=== PATIENT | female | born 1960 | race Caucasian/White ===

== ENCOUNTER → 2016-11-04 | Outpatient (CLI) | payer BC ==
[2016-11-04 07:49] LABS: BASOPHILS # (AUTO) 0.03 10*3/UL; BASOPHILS % (AUTO) 0.5 % (0-1); EOSINOPHILS % (AUTO) 7.5 % (0-8); HEMATOCRIT 40.7 % (37.0-47.0); HEMOGLOBIN 13.6 g/dL (12.0-16.0); IMM GRAN % (AUTO) 0.3 % (0-5); IMM GRAN# (AUTO) 0.02 10*3/UL; LYMPHOCYTES # (AUTO) 1.75 10*3/uL; LYMPHOCYTES % (AUTO) 27.4 % (10-50); MEAN CORPUSCULAR HEMOGLOBIN 30.4 PG (27-31); MEAN CORPUSCULAR HGB CONC 33.4 g/dL (33-37); MEAN PLATELET VOLUME 10.6 FL (7.4-12.2); MONOCYTES # (AUTO) 0.49 10*3/UL (0.3-0.8); MONOCYTES % (AUTO) 7.7 % (5-15); NEUTROPHILS # (AUTO) 3.61 10*3/UL; NEUTROPHILS % (AUTO) 56.6 % (50-80); RDW COEFFICIENT OF VARIATION 13.5 % (11.5-14.5); RED BLOOD COUNT 4.48 10^6/uL (4.20-5.40); WHITE BLOOD COUNT 6.38 10^3/uL (4.8-10.8)
[2016-11-04 07:55] LABS: PLATELET MORPHOLOGY COMMENT NORMAL MORPHOLOGY (NORM)
[2016-11-04 08:01] LABS: ASPARTATE AMINO TRANSFERASE 27 IU/L (8-39); BILIRUBIN,TOTAL 1.2 mg/dL (0.3-1.2); BLOOD UREA NITROGEN 15 mg/dL (7-22); BUN/CREATININE RATIO 21.42 (6-20); CALCIUM 9.2 mg/dL (8.7-10.7); CHLORIDE 103 meq/L (98-112); CREATININE 0.7 mg/dL (0.50-1.20); EST GLOMERULAR FILTRATION > 60 (>60 ml/min/1.73m(2)); GLUCOSE 147 mg/dL (78-110); HDL CHOLESTEROL 64 mg/dL (40-150); SODIUM 137 meq/L (135-145); TOTAL PROTEIN 7.1 g/dL (6.1-8.0); TRIGLYCERIDES 260 mg/dL (44-200)
== END ==
LOC: LAB 07:38
PROVIDERS: ATTEND Family Medicine
DX: Z00.00 Encounter for general adult medical examination without abnormal findings (principal)
CPT/HCPCS: 36415; 80053; 80061; 82306; 83036; 84443; 85025

== ENCOUNTER 2018-11-18 18:54 | Inpatient (IN) ==
[2018-11-18] MEDS ORDERED: PANTOPRAZOLE IV 40 MG VIAL IVP ONE (19:52)
[2018-11-18] MEDS ORDERED: ONDANSETRON 4 MG/2 ML VIAL IVP ONE (19:52)
[2018-11-18] MEDS ORDERED: Sodium Chloride 0.9% 1,000 ML PRIMARY IV ONE (19:52)
[2018-11-18] MEDS ORDERED: Acetaminophen 1000mg Inj 1,000 MG/100 ML VIAL IV PRN (19:54)
[2018-11-18 20:31] LABS: BASOPHILS # (AUTO) 0.03 10*3/UL; BASOPHILS % (AUTO) 0.3 % (0-1); EOSINOPHILS % (AUTO) 2.9 % (0-8); Hematocrit [HCT] 46.1 % (37.0-47.0); Hemoglobin [HGB] 15.4 g/dL (12.0-16.0); LYMPHOCYTES # (AUTO) 1.42 10*3/uL; MEAN CORPUSCULAR HEMOGLOBIN 30.3 PG (27-31); MEAN CORPUSCULAR HGB CONC 33.4 g/dL (33-37); MEAN CORPUSCULAR VOLUME 90.6 FL (81-99); MEAN PLATELET VOLUME 11.8 FL (7.4-12.2); MONOCYTES # (AUTO) 0.57 10*3/UL (0.3-0.8); MONOCYTES % (AUTO) 5.6 % (5-15); NEUTROPHILS # (AUTO) 7.86 10*3/UL; NEUTROPHILS % (AUTO) 77.1 % (50-80); RED BLOOD COUNT 5.09 10^6/uL (4.20-5.40)
[2018-11-18 20:35] LABS: BLOOD UREA NITROGEN 12 mg/dL (7-22); BUN/CREATININE RATIO 17.14 (6-20); LIPASE 47 IU/L (23-300); SERUM ALBUMIN 4.7 g/dL (3.5-4.8)
[2018-11-18 20:36] LABS: PLATELET MORPHOLOGY COMMENT NORMAL MORPHOLOGY (NORM); RBC MORPHOLOGY COMMENT NORMAL MORPHOLOGY (NORM); WBC MORPHOLOGY COMMENT NORMAL MORPHOLOGY (NORM)
[2018-11-18 20:37] LABS: BILIRUBIN,URINE NEGATIVE (NEG); CLARITY,URINE Slightly Cloudy (CLEAR); COLOR,URINE YELLOW (Y); GLUCOSE, URINE (UA) NEGATIVE (NEG); OCCULT BLOOD,URINE NEGATIVE (NEG); PH,URINE 7.5 (5.0-8.5); PROTEIN,URINE TRACE mg/dl (NEG); URINE SAMPLE TYPE CLEAN CATCH URINE; UROBILINOGEN,URINE 0.2 EU/dL (0.2)
--- NOTE | 2018-11-18 21:32 | DI ---
EXAM: CT Abdomen and Pelvis With Intravenous Contrast CLINICAL HISTORY: ITS.REASON abdominal pain, left Physician Notes: Tech Comments: TECHNIQUE: Axial computed tomography images of the abdomen and pelvis with intravenous contrast. COMPARISON: No relevant prior studies available. FINDINGS: Lung bases: Unremarkable. No mass. No consolidation. ABDOMEN: Liver: Unremarkable. No mass. Gallbladder and bile ducts: No abnormal ductal dilation or stones. Pancreas: Unremarkable. No mass. No ductal dilation. Spleen: Unremarkable. No splenomegaly. Adrenals: Unremarkable. No mass. Kidneys and ureters: Unremarkable. No solid mass. No hydronephrosis. Stomach and bowel: No obstruction. No mucosal thickening. PELVIS: Appendix: No findings to suggest acute appendicitis. Bladder: Unremarkable. No mass. Reproductive: Unremarkable as visualized. ABDOMEN and PELVIS: Intraperitoneal space: Unremarkable. No free air. No significant fluid collection. Bones/joints: No acute fracture. No dislocation. Soft tissues: Fluid levels throughout the colon. Mild soft tissue swelling around the ascending colon. Moderate soft tissue swelling around the descending and sigmoid colon. Vasculature: No abdominal aortic aneurysm. Lymph nodes: Unremarkable. No enlarged lymph nodes. IMPRESSION: Fluid levels throughout the colon. Mild soft tissue swelling around the ascending colon. Moderate soft tissue swelling around the descending and sigmoid colon. Consistent with moderate colitis.
--- NOTE | 2018-11-18 22:05 | PDOC ---
HPI - History of Present Illness History of Present Illness: This very nice 58-year-old female who has been having abdominal pain since Monday she was seen in the ER dismissed home comes back today for increased right lower quadrant abdominal pain she was found to have normal labs The CT scan consistent with colitis. She does have some rebound tenderness on the right side I did call Dr. karley Lopez presented the patient and the findings a agrees with treatment at present time will see the patient in the morning there is no rigidity of her abdomen. There is no diarrhea no nausea no vomiting Past Medical History Medical History: Diabetes, GERD, hypothyroidism Tobacco Use: Never Smoker In the Past 12 Months, Have Used or Abuse Any of the Following Substance: None Medication / Allergies Home Medications: Home Medications Medication Instructions Recorded Confirmed Type Pioglitazone HCl [Actos] 300 mg PO DAILY 07/31/12 11/13/18 History Levothyroxine Sodium 50 mcg PO DAILY 11/13/18 11/13/18 History Mv-Mn/Iron/Folic Acid/Herb 190 25 mcg PO DAILY 11/13/18 11/13/18 History [Vitamin D3 Complete Caplet] Pantoprazole Sodium [Protonix] 40 mg PO BID 11/13/18 11/13/18 History Sitagliptin Phosphate [Januvia] 100 mg PO DAILY 11/13/18 11/13/18 History Allergies/Adverse Reactions: Allergies Allergy/AdvReac Type Severity Reaction Status Date / Time hydrocodone bitartrate Allergy Intermediate RASH Verified 11/13/18 01:04 [From Vicodin] acetaminophen [From Vicodin] Allergy Unknown NOT Verified 11/13/18 01:04 APPLICABLE Review of Systems - Review of Systems All Systems: Reviewed & No Additional Complaints Except as Stated - Respiratory Respiratory: DENIES: Negative System Review, Cough, Sputum, Dyspnea At Rest, Dyspnea with Exertion, Pleuritic Pain, Hemoptysis, Wheezing, Other, See HPI - Cardiovascular Cardiovascular: DENIES: Negative System Review, Chest Pain, Edema, Syncope, Palpitations, Orthopnea, Paroxysmal Nocturnal Dyspnea, Other, See HPI - Gastrointestinal Gastrointestinal / Abdominal: REPORTS: Abdominal Pain. DENIES: Nausea, Vomiting, Diarrhea Exam - Vitals Vital Signs: Vital Signs Temperature 97.0 F Temperature Source Temporal Artery Scan Pulse Rate [Pulse Oximeter] 75 Respiratory Rate 20 Blood Pressure [Left Arm] 144/81 Pulse Ox 98 Oxygen Delivery Method Room Air Height 5 ft Weight 270 lb - General General Appearance: Cooperative, Mild Distress - Respiratory Respiratory Exam: POSITIVE: Clear to Auscultation - Bilaterally, Breathing Non Labored, Normal To Percussion, Normal to Percussion and Palpation - Cardiovascular Cardiovascular Exam: POSITIVE: RRR, No Murmur, No Clicks, No Gallops, No Rubs, PMI Non-Displaced - GI/Abdominal GI/Abdominal Exam: POSITIVE: Normal Bowel Sounds, Soft, No Masses, Rebound, No Hepatomegaly, No Splenomegaly, No Organomegaly. NEGATIVE: Firm, Distended, Guarding, Rigid, Positive for Ascites - Extremities Extremities Exam: POSITIVE: No Clubbing Present, No Edema Present Results - Labs CBC and BMP: 11/18/18 19:35 11/18/18 19:35 Assessment and Plan - Patient Problems (1) Colitis Current Visit: Yes Status: Acute Comment: IV fluids, hold diabetic medication, start Invanz IV consult to Dr. karley Lopez I talked to him on the phone and he will see the patient in the morning Code(s): K52.9 - Noninfective gastroenteritis and colitis, unspecified (2) Abdominal pain Current Visit: No Status: Acute Comment: Pain control tried fentanyl we will try diluted next patient says that her allergy to codeine is that she get nausea Code(s): R10.9 - Unspecified abdominal pain
[2018-11-18] MEDS ORDERED: LIDOCAINE W/ SODIUM BICARB 0.5 ML SYR SUBD PRN (22:46)
[2018-11-18] MEDS ORDERED: DOCUSATE 100 MG CAPSULE PO PRN (22:46)
[2018-11-18] MEDS ORDERED: CALCIUM CARBONATE 500 MG (TUMS) CHEWABLE TABLET PO PRN (22:46)
[2018-11-18] MEDS ORDERED: fentaNYL Inj 100 MCG/2 ML VIAL IVP PRN (23:02)
[2018-11-18] MEDS: Ertapenem Inj 1 GM in Sodium Chloride 0.9% 100 ML IV SCH (23:09)
[2018-11-18] MEDS: HEPARIN 5000 UNIT/1 ML SUBCUT SCH (23:09)
[2018-11-18] MEDS: Lactated Ringers 1,000 ML PRIMARY IV SCH (23:09)
[2018-11-18] MEDS: ONDANSETRON 4 MG/2 ML VIAL IVP PRN (23:18)
[2018-11-18] MEDS: Insulin Lispro Flexpen 300 UNIT/3 ML INSULN.PEN SUBCUT SCH (23:53)
[2018-11-18] MEDS: HYDROmorphone 2 MG/1 ML IVP PRN (23:55)
[2018-11-19] MEDS: LEVOTHYROXINE 50 MCG TABLET PO SCH (04:34)
[2018-11-19] MEDS: ONDANSETRON 4 MG/2 ML VIAL IVP PRN ×2 (04:35→09:35)
[2018-11-19] MEDS: HYDROmorphone 2 MG/1 ML IVP PRN (04:35)
[2018-11-19 04:44] LABS: BASOPHILS # (AUTO) 0.01 10*3/UL; BASOPHILS % (AUTO) 0.1 % (0-1); EOSINOPHILS # (AUTO) 0.02 10*3/UL; EOSINOPHILS % (AUTO) 0.2 % (0-8); Hematocrit [HCT] 41.8 % (37.0-47.0); LYMPHOCYTES # (AUTO) 1.39 10*3/uL; MEAN CORPUSCULAR HEMOGLOBIN 30.3 PG (27-31); MEAN CORPUSCULAR HGB CONC 33.5 g/dL (33-37); MEAN CORPUSCULAR VOLUME 90.5 FL (81-99); MONOCYTES # (AUTO) 0.32 10*3/UL (0.3-0.8); MONOCYTES % (AUTO) 3.3 % (5-15); NEUTROPHILS # (AUTO) 7.81 10*3/UL; NEUTROPHILS % (AUTO) 81.7 % (50-80); RED BLOOD COUNT 4.62 10^6/uL (4.20-5.40)
[2018-11-19 04:53] LABS: BLOOD UREA NITROGEN 9 mg/dL (7-22); SERUM ALBUMIN 3.7 g/dL (3.5-4.8)
--- NOTE | 2018-11-19 04:57 | PDOC ---
Abdomen/Flank HPI - General Chief Complaint: Nausea / Vomiting / Diarrhea Stated Complaint: abdominal pain, vomiting Date Seen by Provider: 11/18/18 Time Seen by Provider: 19:25 Source: POSITIVE: Patient, Spouse Exam Limitations: POSITIVE: No limitations Nurse's Notes Reviewed & Considered: Yes - History of Present Illness Initial Comments: The patient is a 58-year-old female. Patient complains of left-sided abdominal pain. Patient was seen Monday, 5 days ago in the emergency room with several complaints. She states she's also had vomiting and last vomited one and a half hours [employer] TE[employer]. She states she's had a cholecystectomy and an appendectomy. She had surgery for intussusception of the bowel when she was 6 months old. Motor previous visit CT scan abdomen and pelvis with IV contrast was read as normal and laboratory values were normal. She had one episode of vomiting shortly after arrival to the emergency room. History of diabetes mellitus. She is on home oxygen. No known fevers or chills. No melena, hematochezia, hematemesis, dysuria or hematuria. She states she has a history of constipation. Patient s tates she had a colonoscopy a few months ago, and to the best of her knowledge this was normal Body Location Affected: REPORTS: Abdomen Timing: REPORTS: Intermittent Duration: <1 week (5 days) Severity: Moderate Quality: REPORTS: "Pain" Abdominal Pain Onset Location: REPORTS: LLQ, Periumbilical Abdominal Pain Radiation: REPORTS: No radiation Context: REPORTS: None Modifying Factors: improves with: Movement, Other (Worsened with direct palpation) Associated Symptoms: REPORTS: Nausea, Vomiting Similar Symptoms Previously: Yes (seen in ER with's same complaint 5 days ago) Recent Care Received: REPORTS: Recently Seen, Treated by MD (Seen in ER with same complaint 5 days ago) Any Prior Injuries Related to Current Complaint?: No - Patient Home Medications Home Medications: Home Medications Pioglitazone HCl [Actos] 300 mg PO DAILY 07/31/12 Levothyroxine Sodium 50 mcg PO DAILY 11/13/18 Mv-Mn/Iron/Folic Acid/Herb 190 [Vitamin D3 Complete Caplet] 25 mcg PO DAILY 11/13/18 Pantoprazole Sodium [Protonix] 40 mg PO BID 11/13/18 Sitagliptin Phosphate [Januvia] 100 mg PO DAILY 11/13/18 - Patient Allergies Allergies/Adverse Reactions: Allergies Allergy/AdvReac Type Severity Reaction Status Date / Time hydrocodone bitartrate Allergy Intermediate RASH Verified 11/19/18 03:30 [From Vicodin] Past Medical History - heen HEENT History: Denies History Cardiovascular History: Denies History Respiratory History: Home Oxygen Use, Home CPAP Use, Snoring Gastrointestinal History: GERD, Other (please comment) Additional Gastrointestinal History: EPIGASTRIC PAIN Genitourinary History: Denies History Endocrine History: Type 2 Diabetes (oral) Musculoskeletal History: Denies History Neurological History: Denies History Blood Disorders: Denies History Psychiatric History: Denies History History of Sexually Transmitted Diseases: No Female Reproductive History: Denies History Obstetrical History: Denies History Cancer History: Denies History In Past Year Been Physically Harmed or Verbally Threatened: No History of MDRO: No History of Other Communicable Diseases: No Tobacco Use: Never Smoker Alcohol Use: None In the Past 12 Months, Have Used or Abuse Any Substance: None Previous Surgical History: Yes Type / Date of Surgery: SINUS SURGERY X 3, RIGHT KNEE SURGERY X 7, TONSILLECTOMY, APPY, GALLBLADDER REMOVAL, TENDON RELEASE HANDS CHARLES, INTUSSUCEPTION, CUT DOWN CHARLES ARMS CHILD. Anesthesia Reactions: No Malignant Hyperthermia: No Significant Family History: No pertinent family hx Past Medical History Reviewed: Reviewed - No Changes ROS - Limitations ROS Limitations: No Limitations Constitution: REPORTS: Denies Symptoms Cardiovascular: REPORTS: Denies Cardiac Symptoms Respiratory: REPORTS: Denies Resp Symptoms Neurological: REPORTS: Denies Neuro Symptoms Gastrointestinal: REPORTS: Abdominal Pain, Nausea, Vomitting Endocrine: REPORTS: Denies Symptoms Musculoskeletal: REPORTS: Denies MS Symptoms Genitourinary: REPORTS: Denies Symptoms Eyes: REPORTS: Denies Symptoms ENT: REPORTS: Denies Symptoms Skin: REPORTS: Denies Skin Symptoms Lympathic: REPORTS: Denies Lympathic Symptoms Immunologic: POSITIVE: Denies Symptoms Psychiatric: POSITIVE: Denies Psych Symptoms Abdominal/Flank Pain PE - General Appearance General Appearance: POSITIVE: Alert, Cooperative, No Acute Distress, No Evidence of Trauma - HEENT HEENT: POSITIVE: Head Inspection Nml, Eyes Inspection Nml, Ears Inspection Nml, Nose Inspection Nml, Oral/Dental Inspect. Nml, Pharynx Inspect. Nml, PERRL, EOMI - Neck Neck: POSITIVE: Normal Inspection, No Apparent Injury - Respiratory Respiratory: POSITIVE: No Respiratory Distress, Breath Sounds Normal, Chest Non- Tender - Cardiovascular Cardiovascular: POSITIVE: Regular Rate and Rhythm, Heart Sounds Normal, Equal Pulses, Strong Pulses Peripheral Pulses: Radial (R): 2+, Radial (L): 2+ - Chest Chest: POSITIVE: Non Tender - Abdomen Abdomen: Soft: (All Quadrants), Normal Bowel Sounds: (All Quadrants), Denies Tenderness: (RLQ), (RUQ), No Splenomegaly: (All Quadrants), No Hepatomegaly: (All Quadrants), No Guarding: (All Quadrants), No Rebound: (All Quadrants), No Palpable Pulse: (All Quadrants), No Palpabale Mass: (All Quadrants), No Distention: (All Quadrants), No Rigidity: (All Quadrants), Tenderness Noted: (LUQ), (LLQ) Additional Abdominal Details: Abdominal examination shows bowel sounds to be present. Patient complains of pain on palpation over the left half of the abdomen and suprapubic area, especially over the left lower quadrant. - Back Back: POSITIVE: Normal Inspection. 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 There is some soft tissue swelling around the descending colon descending colon and sigmoid colon. Lab Results Reviewed by Me: Yes CBC and BMP: 11/18/18 19:35 11/18/18 19:35 Lab Results:: Laboratory Results 11/18/18 11/18/18 11/18/18 19:35 19:35 19:35 WBC 10.20 RBC 5.09 Hgb 15.4 Hct 46.1 MCV 90.6 MCH 30.3 MCHC 33.4 RDW Std Deviation 45.3 RDW Coeff of Gurdeep 13.8 Plt Count 241 MPV 11.8 Immature Gran % (Auto) 0.2 Neut % (Auto) 77.1 Lymph % (Auto) 13.9 Ripley % (Auto) 5.6 Eos % (Auto) 2.9 Baso % (Auto) 0.3 Immature Gran # (Auto) 0.02 Neut # (Auto) 7.86 Lymph # (Auto) 1.42 Ripley # (Auto) 0.57 Eos # (Auto) 0.30 Baso # (Auto) 0.03 WBC Morphology Comment Normal morphology Plt Morphology Comment Normal morphology RBC Morph Comment Normal morphology Sodium 140 Potassium 4.3 Chloride 103 Carbon Dioxide 26 Anion Gap 11 BUN 12 Creatinine 0.7 Estimated GFR > 60 BUN/Creatinine Ratio 17.14 Glucose 164 H Calculated Osmolality 293.0 H Calcium 9.8 Total Bilirubin 1.3 H AST 57 H ALT 26 Alkaline Phosphatase 108 Total Protein 8.1 H Albumin 4.7 Globulin 3.4 Albumin/Globulin Ratio 1.30 Amylase 64 Lipase 47 Ur Collection Type Clean catch urine Urine Color Yellow Urine Clarity Slightly cloudy Urine pH 7.5 Ur Specific Hancock 1.020 Urine Protein Trace Urine Glucose (UA) Negative Urine Ketones Negative Urine Occult Blood Negative Urine Nitrate Negative Urine Bilirubin Negative Urine Urobilinogen 0.2 Ur Leukocyte Esterase Negative Ur Culture Indicated? Culture not set - Patient's Progress Pain Medication Addressed: POSITIVE: Yes (Patient medicated with 1 g of acetaminophen IV with good effect) School/Work Release Addressed: POSITIVE: Not Applicable Re-examine Time: 22:50 Re-Examine Comment: Patient feels considerably better after hydration, Zofran IV and acetaminophen IV. This is a second time the patient has been seen in the emergency room for this same complaint. I'm not completely sure what the source of her abdominal pain is. CT abdomen and pelvis might be compatible with colitis. Case discussed with hospitalist and patient is admitted for further evaluation and treatment. Status: POSITIVE: Improved, Re-Examined - Consult Consult (If Yes, Name of Consulting MD & Time Called): Yes (Dr. Das, hospitalist, [id number]) Consulting MD will see pt:: [place] [facility] [place] Counseled: POSITIVE: Patient, Family, RE: Lab Results, RE: Radiology Results, RE: DX, RE: Need for F/U Patient Care Time - Estimated PCT Patient Care Time (In Minutes): 50 Vital Signs - VS Reviewed Vital Signs Reviewed: Yes Discharge Clinical Impression: Abdominal pain, Nausea and vomiting Discharge Disposition: Admit to Inpatient Condition: Stable Date Decision to Admit to Inpatient: 11/18/18 Time Decision to Admit to Inpatient: 22:50
[2018-11-19 05:04] LABS: PLATELET MORPHOLOGY COMMENT NORMAL MORPHOLOGY (NORM); RBC MORPHOLOGY COMMENT NORMAL MORPHOLOGY (NORM); WBC MORPHOLOGY COMMENT NORMAL MORPHOLOGY (NORM)
[2018-11-19] MEDS: Insulin Lispro Flexpen 300 UNIT/3 ML INSULN.PEN SUBCUT SCH ×4 (06:43→20:52)
[2018-11-19] MEDS: HEPARIN 5000 UNIT/1 ML SUBCUT SCH ×3 (06:53→22:29)
[2018-11-19] MEDS ORDERED: DICYCLOMINE 20 MG TABLET PO SCH (09:00)
--- NOTE | 2018-11-19 09:15 | PDOC(PROG) ---
Interval History: Patient states she is doing a little better in regards to her abdominal pain had some nausea and vomiting Objective : Data - Labs CBC and BMP: 11/19/18 04:30 11/19/18 04:30 Objective : Exam - General General Appearance: Cooperative - Head Head Exam: Normal Inspection, Normocephalic, Atraumatic - ENT ENT Exam: Normal Exam, Normal External Ear Exam, Normal Oropharynx, TM's Normal Bilaterally, Mucous Membranes Moist - Respiratory Respiratory Exam: Clear to Auscultation - Bilaterally, Breathing Non Labored, Normal To Percussion, Normal to Percussion and Palpation - Cardiovascular Cardiovascular Exam: RRR, No Murmur, No Clicks, No Gallops, No Rubs, PMI Non- Displaced - GI/Abdominal GI/Abdominal Exam: Normal Bowel Sounds, Non Tender, Non Distended, Soft, No Masses, No Hepatomegaly, No Splenomegaly, No Organomegaly - Extremities Extremities Exam: No Clubbing Present, No Edema Present, No Cyanosis Present Assessment and Plan - Patient Problems (1) Colitis Current Visit: Yes Status: Acute Comment: Continue Invanz her abdominal exam is benign today she is on pain meds and her labs no white count but she does have a left shift today we'll await Dr. karley Lopez's consult continue Invanz and clear liquids Code(s): K52.9 - Noninfective gastroenteritis and colitis, unspecified (2) Abdominal pain Current Visit: No Status: Acute Comment: Most likely secondary to colitis Code(s): R10.9 - Unspecified abdominal pain
[2018-11-19] MEDS: PANTOPRAZOLE 40 MG TABLET PO SCH ×2 (09:30→20:51)
[2018-11-19] MEDS: Lactated Ringers 1,000 ML PRIMARY IV SCH (09:31)
--- NOTE | 2018-11-19 13:11 | CONSULT ---
Consult Note - Consult Consult Date: 11/19/18 Reason for Consult: PreOp Consulation : General Surgery Requesting Physician: Dr. Das Primary Care Provider: PIPPA TEJADA - History of Present Illness History of Present Illness: This is 58-year-old female who's been having abdominal pain for approximately 10 days. She was in the emergency department on 11/13/2018. At that time her workup was unremarkable including a normal CT scan. Patient states that the pain progressively became more severe so she came back emergency department. Her white count was unremarkable. Her CT scan shows an inflammatory process of the left colon with some inflammatory changes in the fatty tissue around the colon. No diverticula were noted. Patient states this in 2019 she had a colonoscopy. I have talked to the clinical assoc Dr. Lynn he tells me his colonoscopy and EGD were basically unremarkable. No evidence of ulcerative colitis or Crohn's disease. Patient random biopsies that were all unremarkable. Patient denies any fevers. She states that she is not passing gas or having bowel movements. On CT scan there is no evidence of bowel obstruction. I reviewed the information from Dr. Morris and also the ER doctor I reviewed the CT scan with Dr. Hardeep Knox Past Medical History Medical History: Diabetes, GERD, hypothyroidism Tobacco Use: Never Smoker In the Past 12 Months, Have Used or Abuse Any of the Following Substance: None Medication / Allergies Home Medications: Home Medications Medication Instructions Recorded Confirmed Type Pioglitazone HCl [Actos] 300 mg PO DAILY 07/31/12 11/19/18 History Levothyroxine Sodium 50 mcg PO DAILY 11/13/18 11/19/18 History Mv-Mn/Iron/Folic Acid/Herb 190 25 mcg PO DAILY 11/13/18 11/19/18 History [Vitamin D3 Complete Caplet] Pantoprazole Sodium [Protonix] 40 mg PO BID 11/13/18 11/19/18 History Sitagliptin Phosphate [Januvia] 100 mg PO DAILY 11/13/18 11/19/18 History Allergies/Adverse Reactions: Allergies Allergy/AdvReac Type Severity Reaction Status Date / Time hydrocodone bitartrate Allergy Intermediate RASH Verified 11/19/18 03:30 [From Vicodin] Results - Labs CBC and BMP: 11/19/18 04:30 11/19/18 04:30 Exam - Vitals Vital Signs: Vital Signs Temperature 97.7 F Temperature Source Temporal Artery Scan Pulse Rate [Pulse Oximeter] 69 Respiratory Rate 16 Blood Pressure [Left Arm] 144/71 Pulse Ox 94 Oxygen Flow Rate 2 Oxygen Delivery Method Room Air Height 5 ft Weight 270 lb 6.4 oz - General General Appearance: No Acute Distress, Cooperative - Head Head Exam: Normocephalic - Eye Eye Exam: POSITIVE: PERRL, EOMI - GI/Abdominal GI/Abdominal Exam: POSITIVE: Non Distended, Soft, Hypoactive Bowel Sounds, No Hepatomegaly, No Splenomegaly Additional GI/Abdominal Exam Details: Minimal tenderness in left lower quadrant. No rebound or rigidity today Assessment and Plan - Patient Problems (1) Abdominal pain Current Visit: Yes Status: Acute Code(s): R10.9 - Unspecified abdominal pain - Assessment / Plan Additional Assessment/Plan Details: This point CT scan does look like an inflammatory process of the left colon and the pericolonic tissue. I'm uncertain why patient is having this. I do not believe the patient has ischemic colitis but this is in the differential diagnosis. Also patient may just have diverticulitis or an infectious colitis. I do believe the patient is been on antibiotics. Continue clear liquid diet until pain is better. Patient be reevaluated tomorrow on November 20. I spoken Dr. Morris prior to and after seeing the patient.
[2018-11-19] MEDS: ACETAMINOPHEN 325 MG TABLET PO PRN ×2 (16:30→22:29)
[2018-11-19] MEDS: Ertapenem Inj 1 GM in Sodium Chloride 0.9% 100 ML IV SCH (22:29)
[2018-11-20] MEDS: LEVOTHYROXINE 50 MCG TABLET PO SCH (05:36)
[2018-11-20] MEDS: HEPARIN 5000 UNIT/1 ML SUBCUT SCH (07:07)
[2018-11-20] MEDS: Insulin Lispro Flexpen 300 UNIT/3 ML INSULN.PEN SUBCUT SCH (07:13)
[2018-11-20 07:47] VITALS: BP 101/58; RESP 18; TEMP 97.8; O2SAT 96
--- NOTE | 2018-11-20 09:00 | DCSUMMARY ---
Hospitalization Summary Hospital Course: Final Discharge Diagnosis: Current Visit Problems Problem Status Onset Code Colitis Acute K52.9 Abdominal pain Acute R10.9 Nausea and vomiting Acute R11.2 Diagnostic Data, Laboratory Data, and Procedures of Signifigance: CBC and BMP 11/19/18 04:30 11/19/18 04:30 History and Physical pertinent to Admission: Course of Hospitalization: This very nice 58-year-old female comes in with the abdominal pain general surgery was consult did the possible colitis patient is pain-free today with no abdominal pain whatsoever on physical exam she is eating and drinking him passing gas she is back to her normal self. Patient will be discharged home on Augmentin for 10 days and follow-up with Dr. karley Lopez as an outpatient. On the date of discharge, the patient was examined: Gen.: No acute distress, alert, nontoxic Heart: Regular rate and rhythm, no murmurs, clicks, gallops, or rubs Lungs: Clear to auscultation bilaterally, breathing is nonlabored Abdomen/GI: Normal tones on auscultation, soft, nontender, nondistended Musculoskeletal/extremities: No clubbing, cyanosis, or edema Vitals reviewed and are listed below Vital Signs (24 hrs) 11/19/18 13:00 11/19/18 16:38 11/19/18 19:00 Temperature 97.7 F 97.6 F Pulse Rate Pulse Oximeter 69 79 79 Respiratory Rate 16 20 Blood Pressure Left Arm 144/71 126/59 Pulse Ox 94 95 11/19/18 20:57 11/20/18 01:00 11/20/18 05:00 Temperature 97.7 F 97.4 F 97.5 F Pulse Rate Pulse Oximeter 68 62 60 Respiratory Rate 20 20 20 Blood Pressure Left Arm 135/67 97/54 117/75 Pulse Ox 94 92 96 11/20/18 07:00 11/20/18 07:28 11/20/18 07:47 Temperature 97.8 F Pulse Rate Pulse Oximeter 60 63 Respiratory Rate 18 Blood Pressure Left Arm 101/58 Pulse Ox 95 96 Assessment and Plan: 1. As per discharge assessments above 2. Disposition: Home 3. Condition on discharge, stable and improved. 4. Diet: regular diet 5. Activities: resume normal activities 6. Follow-Up: 1. PCP 2. 7. Medications at the Time of Discharge: Home Medications Medication Instructions Recorded Confirmed Type Pioglitazone HCl [Actos] 300 mg PO DAILY 07/31/12 11/19/18 History Levothyroxine Sodium 50 mcg PO DAILY 11/13/18 11/19/18 History Mv-Mn/Iron/Folic Acid/Herb 190 25 mcg PO DAILY 11/13/18 11/19/18 History [Vitamin D3 Complete Caplet] Pantoprazole Sodium [Protonix] 40 mg PO BID 11/13/18 11/19/18 History Sitagliptin Phosphate [Januvia] 100 mg PO DAILY 11/13/18 11/19/18 History Amoxicill/Clav 875/125mg 1 each PO BID #20 tablet 11/20/18 Rx [Augmentin 875/125mg] 8. Time, care, counseling and coordination of care for this discharge is greater than 30 minutes. Exam - Vitals Vital Signs: Vital Signs Temperature 97.8 F Temperature Source Temporal Artery Scan Pulse Rate [Pulse Oximeter] 63 Respiratory Rate 18 Blood Pressure [Left Arm] 101/58 Pulse Ox 96 Oxygen Flow Rate 2 Oxygen Delivery Method Room Air Height 5 ft Weight 266 lb 6.4 oz Patient Problems - Patient Problem List (1) Colitis Current Visit: Yes Status: Acute Code(s): K52.9 - Noninfective gastroenteritis and colitis, unspecified Category: Medical (2) Abdominal pain Current Visit: No Status: Acute Code(s): R10.9 - Unspecified abdominal pain Category: Medical
[2018-11-20] MEDS: PANTOPRAZOLE 40 MG TABLET PO SCH (09:35)
== END 2018-11-20 10:50 | disposition home or self-care (01) | DRG 392 ==
LOC: ER 18:54 → MED/SURG 21:56
PROVIDERS: ADMIT Internal Medicine; ATTEND Internal Medicine